=== PATIENT | male | born 1990 | race Caucasian/White ===

== ENCOUNTER 2018-08-03 02:10 | Inpatient (IN) ==
--- NOTE | 2018-08-03 02:35 | PROVIDER DOCUMENTATION ---
HPI-Fever - General Chief Complaint: Flu Symptoms Stated Complaint: PNA SYMPTOMS Time Seen by Provider: 08/03/18 02:12 Source: patient Allergies/Adverse Reactions: Patient Allergies Allergy/AdvReac Type Severity Reaction Status Date / Time No Known Allergies Allergy Verified 05/31/17 20:44 Home Medications: Home Medication List Medication Instructions Recorded Confirmed Last Taken Type Azithromycin [Zithromax Z-Shane] 250 mg PO DIRECTED #1 pkg 03/25/18 Unknown Rx - History of Present Illness-Fever Nature of Presenting Problem: Patient is a 28 year old white male with history of asthma and HTN complaining of fever up to 103, generalized aches, and coughing up white sputum since yesterday. Just returned on vacation from [place]. Fever Severity/Quality: reports: greater than 102 F Onset/Duration: reports: 2 days ago Timing: reports: still present Severity: reports: moderate Recent Illness?: reports: none Cognitive Baseline: alert, oriented x3 Associated Symptoms: reports: cough, fever/chills, weakness. denies: constipation, diarrhea - Glascow Coma Score Best Eye Response ([place]): (4) open spontaneously Best Verbal Response ([place]): (5) oriented Best Motor Response ([place]): (6) obeys commands [place] Total: 15 Review of Systems - Adult - REVIEW OF SYSTEMS - ADULT Constitutional: reports: chills, fever Eyes: reports: no symptoms reported Ears, Nose, Mouth & Throat: reports: see HPI Cardiovascular: denies: chest pain Respiratory: reports: cough, pleurisy, shortness of breath, wheezing Gastrointestinal: denies: abdominal pain, diarrhea, nausea, vomiting Genitourinary: denies: dysuria Musculoskeletal: reports: joint pain, muscle aches Neurological: reports: headache/migraines Past History - Adult - PAST MEDICAL HISTORY-ADULT Review of Records: reports: Old Records Reviewed, Nursing Assessment Review, Medications Reviewed, Social history reviewed & non-contributory. Major Childhood Illnesses: reports: denies history Cardiovascular: reports: denies history Respiratory: reports: asthma Gastrointestinal: reports: denies history Obstetrical/Gynecological: reports: denies history Genitourinary: reports: denies history Musculoskeletal: reports: denies history Neurological: Psychiatric: reports: depression Endocrine/Immune: reports: denies history Other Conditions: reports: denies history - PRIOR SURGERIES/PROCEDURES Surgical/Procedure History: reports: none - IMMUNIZATION STATUS Childhood Immunizations: See Nurse Assessment Flu Vaccine: See Nurse Assessment - FAMILY HISTORY Family History: reviewed, not pertinent Physical Exam-General - CONSTITUTIONAL General Appearance: alert, no apparent distress - EYES Eyes: other (clear) - HEAD, EARS, NOSE, MOUTH & THROAT HENMT: moist mucous membranes - NECK Neck: non-tender, full range of motion, supple - RESPIRATORY Respiratory: decreased breath sounds, wheezing - CARDIOVASCULAR Cardiovascular: tachycardia Progress - PLAN OF CARE/RESULTS Progress/Plan/Lab Results: Vital Signs - 8 hr 08/03/18 02:13 08/03/18 02:43 08/03/18 03:10 Temperature 99.8 F H Pulse Rate 111 H 97 H 88 Respiratory Rate 26 H 24 22 Blood Pressure 166/95 163/86 177/85 O2 Sat by Pulse Oximetry 89 L 94 L 94 L 08/03/18 03:30 08/03/18 03:40 08/03/18 04:03 Temperature 98.1 F Pulse Rate 86 78 Respiratory Rate 22 21 Blood Pressure 173/114 O2 Sat by Pulse Oximetry 95 95 08/03/18 04:20 08/03/18 04:53 08/03/18 05:32 Temperature Pulse Rate 76 80 76 Respiratory Rate 20 24 16 Blood Pressure 184/109 O2 Sat by Pulse Oximetry 97 96 97 08/03/18 02:25 Influenza Screen - Final Nasopharyngeal Laboratory Results - last 24 hr 08/03/18 08/03/18 08/03/18 02:36 02:36 02:36 WBC 8.74 RBC 5.21 Hgb 14.3 Hct 44.3 MCV 85.0 MCH 27.4 MCHC 32.3 L RDW Std Deviation 14.0 Plt Count 240 MPV 11.0 H Immature Gran % (Auto) 0.2 Neut % (Auto) 75.0 Lymph % (Auto) 7.9 L [place] % (Auto) 12.7 H Eos % (Auto) 4.0 Baso % (Auto) 0.2 Immature Gran # (Auto) 0.02 Neut # (Auto) 6.55 H Lymph # (Auto) 0.69 L [place] # (Auto) 1.11 H Eos # (Auto) 0.35 Baso # (Auto) 0.02 D-Dimer, Quantitative Sodium 137 Potassium 3.9 Chloride 94 L Carbon Dioxide 29 Anion Gap 14 BUN 14 Creatinine 0.9 Estimated GFR/1.73 m2 > 60 BUN/Creatinine Ratio 16 Glucose 108 H Calculated Osmolality 275 Calcium 9.5 Plasma Lactate 1.3 08/03/18 02:36 WBC RBC Hgb Hct MCV MCH MCHC RDW Std Deviation Plt Count MPV Immature Gran % (Auto) Neut % (Auto) Lymph % (Auto) [place] % (Auto) Eos % (Auto) Baso % (Auto) Immature Gran # (Auto) Neut # (Auto) Lymph # (Auto) [place] # (Auto) Eos # (Auto) Baso # (Auto) D-Dimer, Quantitative < 0.27 Sodium Potassium Chloride Carbon Dioxide Anion Gap BUN Creatinine Estimated GFR/1.73 m2 BUN/Creatinine Ratio Glucose Calculated Osmolality Calcium Plasma Lactate Orders Category Date Time Status CHEST-2 VIEWS [RAD] Stat Exams 08/03/18 02:36 Taken BLOOD CULTURE [BLDCUL] Stat Lab 08/03/18 02:42 Results BMP [BASIC METABOLIC PANEL] [CHEM] Stat Lab 08/03/18 02:36 Completed CBC WITH ELECTRONIC DIFF [HEME] Stat Lab 08/03/18 02:36 Completed D-DIMER [COAG] Stat Lab 08/03/18 02:36 Completed INFLUENZA SCREEN A/B Stat Lab 08/03/18 02:25 Completed LACTATE, PLASMA [CHEM] Stat Lab 08/03/18 02:36 Completed 0.9% Sodium Chloride Inj [Ns] 1,000 ml Med 08/03/18 02:41 Discontinued IV 999 mls/hr Acetaminophen [Tylenol] Med 08/03/18 02:41 Discontinued 650 mg PO NOW ONE Albuterol 2.5MG/Ipratrop 0.5MG [Duoneb (A & A)] Med 08/03/18 05:04 Disco ntinued 3 ml INH NOW ONE CefTRIAXONE [Rocephin] 1 gm Med 08/03/18 04:37 Discontinued 0.9% Sodium Chloride Inj [Ns] 50 ml IV NOW Methylprednisolone Sod Succ [Solu-Medrol] Med 08/03/18 05:04 Discontinued 125 mg IV NOW ONE Aerosol Treatments Routine Oth 08/03/18 05:04 Completed Aerosol Treatments Stat Oth 08/03/18 05:04 Completed Pulse Oximetry Stat Oth 08/03/18 02:43 Completed Result Diagrams: 08/03/18 02:36 08/03/18 02:36 - REASSESSMENT Reassessment #1 Time Reassessed: 05:40 Status: unchanged Reassessment Comment: continues to have sat of 89% on room air and wheezing - XRAY 1 XRAY Study: Chest XRAY Interpretation: NAD - CONSULTS/PCP/HOSPITALIST Notification #1 *Consult/PCP/Hospitalist*: Dr. Duong, hospitalist Time Discussed: 05:45 Consult Disposition: Admit Departure - Departure Date of Disposition Decision: 08/03/18 Time of Disposition Decision: 05:47 DIAGNOSIS: Hypoxemia Asthma exacerbation Qualifiers: Asthma severity: mild Asthma persistence: intermittent Qualified Code(s): J45.21 - Mild intermittent asthma with (acute) exacerbation Disposition: ADMITTED INPATIENT 09 Certified Medical Emergency: Emergent Condition: Stable Referrals and Follow-Ups: Allyn Lowery CRNP [Primary Care Provider] - - Critical Care Note This patient required my direct & personal management of CC.: No Attestation - Physician/ WINSOME Attestation Patient care was provided by Advanced Practice Provider:: No The physician spent face to face time with patient:: Yes Advanced Practice Provider documentation review:: Supervising physician onsite and consulted in the evaluation and care of this patient. The physician did have a face to face encounter with the patient.
[2018-08-03] MEDS ORDERED: TYLENOL PO ONE (02:41)
[2018-08-03] MEDS ORDERED: NS 1,000 ML IV ONE (02:41)
[2018-08-03 03:09] LABS: BASO# 0.02 X1000 (0.0-0.2); BASO% 0.2 % (0.0-0.8); EOS# 0.35 X1000 (0.0-0.7); HEMATOCRIT 44.3 % (42.0-52.0); HEMOGLOBIN 14.3 g/dL (14.0-18.0); IMM GRAN# 0.02 X1000 (0.0-0.04); IMM GRAN% 0.2 % (0.0-0.5); LYMPH# 0.69 X1000 (1.2-3.4); LYMPH% 7.9 % (20.5-51.1); MCH 27.4 PG (27-31); MCHC 32.3 g/dL (33-37); MONO# 1.11 X1000 (0.11-0.59); MONO% 12.7 % (1.7-9.3); NEUT# 6.55 X1000 (1.4-6.5); PLT 240 X1000 (130-400); RBC 5.21 XMIL (4.7-6.1); WBC 8.74 X1000 (4.8-10.8)
[2018-08-03 03:39] LABS: AGAP 14; BUN 14 mg/dL (8-22); CALCIUM 9.5 mg/dL (8.8-10.2); CHLORIDE 94 mmol/L (98-107); COSMO 275; CREATININE 0.9 mg/dL (0.7-1.2); ESTIMATED GFR > 60; GLUCOSE 108 mg/dL (70-104); POTASSIUM 3.9 mmol/L (3.5-5.1); SODIUM 137 mmol/L (136-145); TCO2 29 mmol/L (25-35)
[2018-08-03] MEDS ORDERED: ROCEPHIN 1 GM in NS 50 ML IV ONE (04:37)
[2018-08-03] MEDS ORDERED: SOLU-MEDROL IV ONE (05:04)
[2018-08-03] MEDS ORDERED: DUONEB (A & A) INH ONE (05:04)
[2018-08-03] MEDS ORDERED: ZOFRAN IV PRN (05:46)
[2018-08-03] MEDS ORDERED: ALBUTEROL NEB INH PRN (05:46)
[2018-08-03] MEDS ORDERED: TYLENOL PO PRN (05:46)
--- NOTE | 2018-08-03 07:13 | Diag Imaging Result Doc PS360 ---
CHEST-2 VIEWS - 08/03/2018 INDICATION: cough,fever COMPARISON: 03/25/2018 FINDINGS: The lungs are normally expanded and clear. Heart size and mediastinal contours are normal. No pneumothorax or pleural effusion. IMPRESSION: Negative exam. Electronically signed by Shamir Keller 08/03/2018 7:11 AM
--- NOTE | 2018-08-03 07:26 | HISTORY AND PHYSICAL ---
PRIMARY CARE PHYSICIAN: ERICKA Tanner. CHIEF COMPLAINT: Shortness of breath. HISTORY OF PRESENTING ILLNESS: A 28-year-old male with a history of asthma and hypertension who had presented to the emergency department with a several day history of worsening shortness of breath. The patient states that he tried his inhalers but he did have any improvement. He continued to have more shortness of breath and subsequently had come to the emergency department. In the ED, he was evaluated. He was dyspneic. He was given DuoNebs and IV Solu-Medrol. He had only mild improvement. Due to his presenting symptoms, it was thought that we would place him for observation for further evaluation and management. At the time of my examination, the patient denied any headache, fever, chills, chest pain, hemoptysis, melena, or weight changes but complained of shortness. PAST MEDICAL HISTORY: Includes asthma and hypertension. PAST SURGICAL HISTORY: None. ALLERGIES: No known drug allergies. CURRENT MEDICATIONS: Include ProAir inhaler. SOCIAL HISTORY: He is a former smoker. No history of alcohol or illicit drug use. FAMILY HISTORY: No history of coronary artery disease. REVIEW OF SYSTEMS: Fourteen point review of systems as listed in the HPI. Other systems negative. PHYSICAL EXAMINATION: GENERAL: Cooperative, friendly male. He is resting comfortably now. VITAL SIGNS: Temperature 98.1 degrees, pulse 86, respirations 22, blood pressure 177/85. HEENT: Atraumatic, normocephalic. Extraocular movements intact. PERRLA. NECK: No masses. CHEST: Scattered wheezes. CARDIOVASCULAR: Regular rate and rhythm. ABDOMEN: Soft. Positive bowel sounds. EXTREMITIES: No edema. NEUROLOGIC: He is awake, alert, oriented x3. : No bladder distention. SKIN: Warm. LABORATORIES AND STUDIES: WBCs 8.74, hemoglobin 14.3, hematocrit 44.3, platelets 240,000. Sodium 137, potassium 3.9, chloride 94, CO2 is 29, BUN is 14, creatinine 0.9, glucose is 108. ASSESSMENT: A 28-year-old male with a history of asthma and hypertension who had presented to the emergency department with a several day history of worsening shortness of breath. He was evaluated in the emergency department. It seems like he has an asthma exacerbation. We will place him for observation for further evaluation and management. 1. Asthma exacerbation. 2. Hypertension. PLAN: 1. We will admit the patient to the medical floor. 2. Continue patient on DuoNebs and IV Solu-Medrol. 3. We will monitor blood pressure closely. 4. We will continue to follow and reassess, and make further recommendation based on the patient's clinical course. cc: Aurelio Duong MD
[2018-08-03] MEDS: DUONEB (A & A) INH SCH ×3 (11:26→22:00)
[2018-08-03] MEDS: SOLU-MEDROL IV SCH ×2 (13:16→21:20)
--- NOTE | 2018-08-03 18:16 | PROGRESS NOTE ---
DATE: 08/03/2018 PRIMARY CARE PHYSICIAN: ERICKA Tanner. CHIEF COMPLAINT: Shortness of breath. SUBJECTIVE: A 28-year-old with history of asthma and hypertension presented to the emergency room with several day history of worsening shortness of breath. States that he tried his inhalers, did not have any improvement, continued to have more shortness of breath and subsequently came to the emergency room. Apparently he has had a long history of asthma, and he gets bronchitis and it recurs, and he usually loses his job when this happens. He has no surgical history. Past medical history is basically asthma and hypertension. I do not believe he is on a steroid inhaler on a regular basis. OBJECTIVE: Vital signs: Today, temperature 98.4 degrees, pulse 94, respirations 18, blood pressure 141/63. HEENT: Pupils are equal and round. Lungs: Clear in all lung zarate. Cardiovascular Exam: Regular rhythm and rate without murmur or S3. Abdomen: Soft. Skin: Warm and dry. DIAGNOSTIC DATA: I reviewed his lab from yesterday. White count 8740, hematocrit 44, platelet count 240,000. Sodium 137, potassium 3.9, chloride 94, BUN 14, creatinine 0.9. Lactate level is 1.3. His chest x-ray was a negative exam, no infiltrates. ASSESSMENT AND PLAN: Asthma exacerbation and acute bronchitis, bronchial irritation. Seems to be doing a little better today. He is on Solu-Medrol and DuoNebs. I do think he needs to have a steroid inhaler added to his regimen. So we will add Advair or actually maybe try Breo Ellipta. We need to see if we get something he can afford at home. He is getting ceftriaxone 1 g q.24 hours. We may try some guaifenesin as well. cc: Sloan Seals MD
[2018-08-03] MEDS ORDERED: ADVAIR 250/50 DISKUS INH SCH (19:30)
[2018-08-03] MEDS ORDERED: MUCINEX PO SCH (21:00)
[2018-08-04] MEDS: DUONEB (A & A) INH SCH (04:08)
[2018-08-04] MEDS ORDERED: ROCEPHIN 1 GM in NS 50 ML IV SCH (05:00)
[2018-08-04] MEDS: SOLU-MEDROL IV SCH (05:53)
[2018-08-04 07:22] VITALS: BP 168/79
--- NOTE | 2018-08-04 20:36 | DISCHARGE SUMMARY ---
ADMISSION DATE: 08/03/2018 DISCHARGE DATE: 08/04/2018 CONSULTATIONS: None. PERTINENT PROCEDURES: Chest x-ray negative exam. DISCHARGE DIAGNOSIS: Asthma exacerbation. 1. The patient was admitted to the medical floor. Started on DuoNeb and IV Solu-Medrol. He left AMA to go follow up with his PCP Allyn Lowery. 2. Hypertension. HOSPITAL COURSE: Briefly Mr. Philip is a 28-year-old male with a history of asthma and hypertension who presented to the ED with a several-day history of worsening of shortness of breath. He had tried his inhalers without any improvement. He continued to be more short of breath. He came to the ED where he was evaluated. He was dyspneic. He was given DuoNeb and IV Solu-Medrol. He only had a mild improvement so he was admitted to the hospitalist service for further evaluation and treatment. He was continued on DuoNeb and IV Solu-Medrol and on 08/04/2018 the patient left AMA to follow up with his primary care provider, Allyn Lowery. Dictated by ERICKA Gudino for Kraig Sofia MD cc: ERICKA Tanner
== END 2018-08-04 08:45 | disposition left against medical advice (07) | DRG 203 ==
LOC: ED 02:10 → SUATTDRO 06:06 → 3N 06:06
PROVIDERS: ATTEND Internal Medicine
CPT/HCPCS: 71020; 71046; 80048; 83605; 85025; 85379; 87040; 87070; 87205; 87275; 87276; 87804; 94640; 94761; 94799; A9270; J0696; J2930; J7030